=== PATIENT | female | born 1995 | race African-American/Black ===

== ENCOUNTER 2022-04-07 02:45 | Inpatient (IN) | payer OTHER ==
[2022-04-07] MEDS ORDERED: MORPHINE SULFATE 4 MG/ML SYRINGE IVP STA (03:07)
--- NOTE | 2022-04-07 03:07 | ED ---
Abdominal Pain HPI - General Source: patient Mode of arrival: ambulatory Limitations: no limitations <Valarie Rubin - Last Filed: 04/07/22 04:00> <Erick Frost - Last Filed: 04/07/22 04:51> - General Chief Complaint: Abdominal Pain Stated Complaint: ABD Pain Time Seen by Provider: 04/07/22 02:58 - History of Present Illness Initial Comments: Patient is a 26-year-old -German female presenting to the emergency room with complaints of upper abdominal pain ongoing for approximately 4 days with worsening intensity now causing her to wake out of the sleep. She is unable to identify any aggravating or alleviating factors. She reports upper abdominal pain radiating to the umbilical region increasing in intensity. She denies any other associated symptoms including any chest pain, shortness of breath, nausea, vomiting, diarrhea, dysuria, hematuria, concerns for STDs, concern for pregnanc y, abnormal vaginal discharge, fevers or chills. She denies any significant past medical history and does not take any medications on a regular basis. (Valarie Rubin) - Related Data Allergies Allergy/AdvReac Type Severity Reaction Status Date / Time No Known Allergies Allergy Verified 04/07/22 02:57 Review of Systems ROS Other: All systems not noted in ROS Statement are negative. <Valarie Rubin - Last Filed: 04/07/22 04:00> ROS Other: All systems not noted in ROS Statement are negative. <Erick Frost - Last Filed: 04/07/22 04:51> ROS Statement: Those systems with pertinent positive or pertinent negative responses have been documented in the HPI. Past Medical History Past Medical History: No Reported History History of Any Multi-Drug Resistant Organisms: None Reported Past Surgical History: Section Past Psychological History: No Psychological Hx Reported Smoking Status: Never smoker Past Alcohol Use History: Occasional Past Drug Use History: None Reported <Valarie Rubin - Last Filed: 04/07/22 04:00> General Exam Limitations: no limitations <Valarie Rubin - Last Filed: 04/07/22 04:00> - General Exam Comments Initial Comments: GENERAL: No acute distress, well developed, well nourished. Obese. HEENT: Normocephalic, atraumatic. Pupils equal, round, reactive to light. Moist mucous membranes. LUNGS: No respiratory distress. Clear to auscultation, no adventitious sounds, no use of accessory muscles. HEART: Regular rate and rhythm without murmur, rub, or gallop. ABDOMEN: Normal bowel sounds. Soft, non-distended. Right upper, left upper and umbilical tenderness. No lower abdominal tenderness. No rigidity or rebound tenderness BACK: Normal inspection. EXTREMITIES: No edema. No tenderness. Moves all extremities. NEUROLOGIC: Alert & oriented x 3. CN II-XII grossly intact. PSYCHIATRIC: Normal affect and behavior. DERMATOLOGIC: Skin intact, without rashes or lesions noted. (Valarie Rubin) Course <Erick Frost - Last Filed: 04/07/22 04:51> Vital Signs 04/07/22 04/07/22 02:53 03:40 Temperature 97.9 F Pulse Rate 96 91 Respiratory 19 18 Rate Blood Pressure 134/85 120/98 O2 Sat by Pulse 99 100 Oximetry - Reevaluation(s) Reevaluation #1: 04/07/22 04:51 Medical record is reviewed (Erick Frost) Reevaluation #2: 04/07/22 04:51 Patient's pain is controlled (Erick Frost) Reevaluation #3: 04/07/22 04:51 Patient informed results and questions have been answered (Erick Frost) - Consultations Consultation #1: Spoke with admitting physicians, DANISH, who agreed to admit this patient (Erick Jung) Medical Decision Making <Valarie Rubin - Last Filed: 04/07/22 04:00> - Lab Data Result diagrams: 04/07/22 03:12 04/07/22 03:12 - Radiology Data Radiology results: report reviewed (CT abdomen and pelvis is positive for pancreatitis), image reviewed <Erick Frost - Last Filed: 04/07/22 04:51> - Medical Decision Making Was pt. sent in by a medical professional or institution (, PA, [employer]CTURER, urgent care, hospital, or [facility]...) When possible be specific @ -No Did you speak to anyone other than the patient for history (EMS, parent, family, police, friend...)? What history was obtained from this source @ -No Did you review nursing and triage notes (agree or disagree)? Why? @ -I reviewed and agree with nursing and triage notes Were old charts reviewed (outside hosp., previous admission, EMS record, old EKG, old radiological studies, urgent care reports/EKG's, [facility] records)? Report findings @ -No old charts were reviewed Differential Diagnosis (chest pain, altered mental status, abdominal pain women, abdominal pain men, vaginal bleeding, weakness, fever, dyspnea, syncope, headache, dizziness, GI bleed, back pain, seizure, CVA, palpatations, mental health)? @ -Differential Abdominal Pain Women: Appendicitis, Cholecystitis, diverticulosis, ischemic bowel, pancreatitis, hepatitis, UTI, gastroenteritis, AAA, incarcerated hernia, bowel obstruction, constipation, inflammatory bowel, hepatitis, peptic ulcer disease, splenic infarction, perforated viscus, vulvitis, ovarian torsion, PID, kidney stone, placenta abruption, this is not meant to be an all-inclusive list EKG interpreted by me (3pts min.). @ -None done X-rays interpreted by me (1pt min.). @ -None done CT interpreted by me (1pt min.). @ -CT of the abdomen and pelvis without contrast and states inflammatory process around pancreas consistent with pancreatitis. No evidence of gallstones. No evidence of obstruction. U/S interpreted by me (1pt. min.). @ -None done What testing was considered but not performed or refused? (CT, X-rays, U/S, labs)? Why? @ -None What meds were considered but not given or refused? Why? @ -None Did you discuss the management of the patient with other professionals (professionals i.e. , PA, [employer]URER, lab, RT, psych nurse, social media sr strategy manager, log tumbler, teacher, payroll officer, child support case officer)? Give summary @ -No Was smoking cessation discussed for >3mins.? @ -No Was critical care preformed (if so, how long)? @ -No Were there social determinants of health that impacted care today? How? (Homelessness, low income, unemployed, alcoholism, drug addiction, transportation, low edu. Level, literacy, decrease access to med. care, retirement, r ehab)? @ -No Was there de-escalation of care discussed even if they declined (Discuss DNR or withdrawal of care, Hospice)? DNR status @ -No What co-morbidities impacted this encounter? (DM, HTN, Smoking, COPD, CAD, Cancer, CVA, ARF, Chemo, Hep., AIDS, mental health diagnosis, sleep apnea, morbid obesity)? @ -None Was patient admitted / discharged? Hospital course, mention meds given and route, prescriptions, significant lab abnormalities, going to OR and other pertinent info. @ -26-year-old -German female presenting to the emergency room with 4 days of upper abdominal pain radiating to the umbilical region increasing in intensity. No identifiable associated symptoms, aggravating or alleviating factors. Upper abdominal tenderness on exam noted. Will begin workup for abdominal pain in female patient with CBC, CMP, urinalysis, amylase, lipase, 4-plex to evaluate for Covid fluent RSV along with urine for . Will obtain CT of the abdomen and pelvis without contrast. Will give morphine for pain. No nausea or evidence of dehydration no need for IV fluids or antiemetics. CT of the abdomen and pelvis reveals pancreatitis. Labs pending. Will add A1c. Discussed recommendation of nothing by mouth status IV hydration and pain management for pancreatitis with patient pending further lab results. Case discussed with and transfer to Dr. Frost for further evaluation, treatment and disposition. Undiagnosed new problem with uncertain prognosis? @ -No Drug Therapy requiring intensive monitoring for toxicity (Heparin, Nitro, Insulin, Cardizem)? @ -No Were any procedures done? @ -No Diagnosis/symptom? @ -Pancreatitis Acute, or Chronic, or Acute on Chronic? @ -Acute Uncomplicated (without systemic symptoms) or Complicated (systemic symptoms)? @ -Uncomplicated Side effects of treatment? @ -No Exacerbation, Progression, or Severe Exacerbation? @ -No Poses a threat to life or bodily function? How? (Chest pain, [place], [place], pneumonia, PE, COPD, DKA, ARF, appy, cholecystitis, CVA, Diverticulitis, Homicidal, Suicidal, threat to staff... and all critical care pts) @ -No (Valarie Rubin) 26 female to the emergency department for evaluation. Patient will be admitted for acute new pancreatitis IV hydration and nothing by mouth status. (Erick Frost) - Lab Data Lab Results 04/07/22 04/07/22 04/07/22 Range/Units 03:07 03:12 03:12 WBC 5.5 (3.8-10.6) k/uL RBC 4.44 (3.80-5.40) m/uL Hgb 12.5 (11.4-16.0) gm/dL Hct 38.3 (34.0-46.0) % MCV 86.3 (80.0-100.0) fL MCH 28.2 (25.0-35.0) pg MCHC 32.7 (31.0-37.0) g/dL RDW 14.4 (11.5-15.5) % Plt Count 435 (150-450) k/uL MPV 8.3 Neutrophils % 48 % Lymphocytes % 42 % Monocytes % 5 % Eosinophils % 3 % Basophils % 1 % Neutrophils # 2.6 (1.3-7.7) k/uL Lymphocytes # 2.3 (1.0-4.8) k/uL Monocytes # 0.3 (0-1.0) k/uL Eosinophils # 0.2 (0-0.7) k/uL Basophils # 0.0 (0-0.2) k/uL Sodium (137-145) mmol/L Potassium (3.5-5.1) mmol/L Chloride (98-107) mmol/L Carbon Dioxide (22-30) mmol/L Anion Gap mmol/L BUN (7-17) mg/dL Creatinine (0.52-1.04) mg/dL Est GFR (CKD-EPI)AfAm (>60 ml/min/1.73 sqM) Est GFR (CKD-EPI)NonAf (>60 ml/min/1.73 sqM) Glucose (74-99) mg/dL Calcium (8.4-10.2) mg/dL Total Bilirubin (0.2-1.3) mg/dL AST (14-36) U/L ALT (4-34) U/L Alkaline Phosphatase (38-126) U/L Total Protein (6.3-8.2) g/dL Albumin (3.5-5.0) g/dL Amylase (30-110) U/L Lipase (23-300) U/L Urine Color Yellow Urine Appearance Cloudy H (Clear) Urine pH 6.5 (5.0-8.0) Ur Specific Todd 1.037 H (1.001-1.035) Urine Protein 1+ H (Negative) Urine Glucose (UA) Negative (Negative) Urine Ketones Negative (Negative) Urine Blood Moderate H (Negative) Urine Nitrite Negative (Negative) Urine Bilirubin Negative (Negative) Urine Urobilinogen 2.0 (<2.0) mg/dL Ur Leukocyte Esterase Negative (Negative) Urine RBC 2 (0-5) /hpf Urine WBC 2 (0-5) /hpf Ur Squamous Epith Cells 59 H (0-4) /hpf Urine Mucus Many H (None) /hpf Urine HCG, Qual (Not Detectd) Influenza Type A (PCR) Not Detected (Not Detectd) Influenza Type B (PCR) Not Detected (Not Detectd) RSV (PCR) Not Detected (Not Detectd) SARS-CoV-2 (PCR) Not Detected (Not Detectd) 04/07/22 04/07/22 Range/Units 03:12 03:12 WBC (3.8-10.6) k/uL RBC (3.80-5.40) m/uL Hgb (11.4-16.0) gm/dL Hct (34.0-46.0) % MCV (80.0-100.0) fL MCH (25.0-35.0) pg MCHC (31.0-37.0) g/dL RDW (11.5-15.5) % Plt Count (150-450) k/uL MPV Neutrophils % % Lymphocytes % % Monocytes % % Eosinophils % % Basophils % % Neutrophils # (1.3-7.7) k/uL Lymphocytes # (1.0-4.8) k/uL Monocytes # (0-1.0) k/uL Eosinophils # (0-0.7) k/uL Basophils # (0-0.2) k/uL Sodium 140 (137-145) mmol/L Potassium 3.9 (3.5-5.1) mmol/L Chloride 111 H (98-107) mmol/L Carbon Dioxide 20 L (22-30) mmol/L Anion Gap 9 mmol/L BUN 8 (7-17) mg/dL Creatinine 0.62 (0.52-1.04) mg/dL Est GFR (CKD-EPI)AfAm >90 (>60 ml/min/1.73 sqM) Est GFR (CKD-EPI)NonAf >90 (>60 ml/min/1.73 sqM) Glucose 108 H (74-99) mg/dL Calcium 8.8 (8.4-10.2) mg/dL Total Bilirubin 0.8 (0.2-1.3) mg/dL AST 46 H (14-36) U/L ALT 28 (4-34) U/L Alkaline Phosphatase 95 (38-126) U/L Total Protein 7.6 (6.3-8.2) g/dL Albumin 4.2 (3.5-5.0) g/dL Amylase 56 (30-110) U/L Lipase 407 H (23-300) U/L Urine Color Urine Appearance (Clear) Urine pH (5.0-8.0) Ur Specific Todd (1.001-1.035) Urine Protein (Negative) Urine Glucose (UA) (Negative) Urine Ketones (Negative) Urine Blood (Negative) Urine Nitrite (Negative) Urine Bilirubin (Negative) Urine Urobilinogen (<2.0) mg/dL Ur Leukocyte Esterase (Negative) Urine RBC (0-5) /hpf Urine WBC (0-5) /hpf Ur Squamous Epith Cells (0-4) /hpf Urine Mucus (None) /hpf Urine HCG, Qual Not Detected (Not Detectd) Influenza Type A (PCR) (Not Detectd) Influenza Type B (PCR) (Not Detectd) RSV (PCR) (Not Detectd) SARS-CoV-2 (PCR) (Not Detectd) Disposition <Valarie Rubin - Last Filed: 04/07/22 04:00> Time of Disposition: 04:50 <Erick Frost - Last Filed: 04/07/22 04:51> Clinical Impression: Abdominal pain, Pancreatitis Disposition: ADMITTED IP TO THIS [facility] Condition: Fair Referrals: None,Stated [Primary Care Provider] - 1-2 days
--- NOTE | 2022-04-07 03:53 | CT ---
EXAMINATION TYPE: CT abdomen pelvis wo con DATE OF EXAM: 04/07/2022 COMPARISON: Abdominal pain HISTORY: abd pain CT DLP: 700 mGycm Automated exposure control for dose reduction was used. Images obtained from the diaphragm to the floor the pelvis without contrast. The lung bases are clear. No pleural effusion. Heart size is normal. No pericardial effusion. Liver spleen and stomach pancreas gallbladder appear intact. The bile ducts are nondilated. There is minimal fat stranding around the pancreas. There is no adrenal mass. Kidneys have normal size and contour. No hydronephrosis. Ureters are not di lated. Appendix is medial and appears normal. No retroperitoneal adenopathy. The bladder distends smo othly. No hiatal hernia. Uterus is anteverted. No pelvic mass. No free fluid in the pelvis. There is no mesenteric edema. No ascites or free air. No sign of a bowel obstruction. The lumbar vertebra have normal alignment. Posterior element are intact. No compression fracture. The bony pelvis is intact. The hip joints are intact. Facet joints are intact. IMPRESSION: Mild fat stranding around the pancreas suggestive of acute pancreatitis. Normal appendix. Mild wall thickening seen in the proximal jejunum that could be some gastroenteritis .
[2022-04-07 03:59] LABS: Basophils % (A) 1 %; Eosinophils # (A) 0.2 k/uL (0-0.7); Eosinophils % (A) 3 %; HCT 38.3 % (34.0-46.0); HGB 12.5 gm/dL (11.4-16.0); Lymphocytes # (A) 2.3 k/uL (1.0-4.8); Lymphocytes % (A) 42 %; MCH 28.2 pg (25.0-35.0); MCHC 32.7 g/dL (31.0-37.0); MCV 86.3 fL (80.0-100.0); Mean Platelet Volume 8.3; Monocytes # (A) 0.3 k/uL (0-1.0); Monocytes % (A) 5 %; Neutrophils # (A) 2.6 k/uL (1.3-7.7); Neutrophils % (A) 48 %; Platelet Count 435 k/uL (150-450); RBC 4.44 m/uL (3.80-5.40); RDW 14.4 % (11.5-15.5); WBC 5.5 k/uL (3.8-10.6)
[2022-04-07 04:01] LABS: ALT 28 U/L (4-34); AST 46 U/L (14-36); African American GFR (CKD) >90 (>60 ml/min/1.73 sqM); Albumin 4.2 g/dL (3.5-5.0); Alkaline Phosphatase 95 U/L (38-126); Amylase 56 U/L (30-110); Anion Gap 9 mmol/L; Blood Urea Nitrogen 8 mg/dL (7-17); Calcium 8.8 mg/dL (8.4-10.2); Carbon Dioxide 20 mmol/L (22-30); Chloride 111 mmol/L (98-107); Glucose 108 mg/dL (74-99); Lipase 407 U/L (23-300); Non-African American GFR(CKD) >90 (>60 ml/min/1.73 sqM); Potassium 3.9 mmol/L (3.5-5.1); Sodium 140 mmol/L (137-145); Total Bilirubin 0.8 mg/dL (0.2-1.3); Total Protein 7.6 g/dL (6.3-8.2)
[2022-04-07] MEDS ORDERED: SODIUM CHLORIDE 0.9% 1,000 ML IV STA (04:03)
[2022-04-07 04:13] LABS: Appearance,Urine Cloudy (Clear); Bilirubin,Urine Negative (Negative); Blood,Urine Moderate (Negative); Color,Urine Yellow; Glucose,Urine (UA) Negative (Negative); Ketones,Urine Negative (Negative); Leukocyte Esterase,Urine Negative (Negative); Mucus,Urine Many /hpf; Nitrite,Urine Negative (Negative); PH, Urine 6.5 (5.0-8.0); Protein,Urine 1+ (Negative); RBC,Urine 2 /hpf (0-5); Specific Gravity,Urine 1.037 (1.001-1.035); Squamous Epithelial Cell,Urine 59 /hpf (0-4); WBC,Urine 2 /hpf (0-5)
[2022-04-07] MEDS ORDERED: NALOXONE 0.4 MG/ML 1 ML VIAL IV PRN (04:49)
[2022-04-07] MEDS ORDERED: ONDANSETRON 4 MG/2 ML VIAL IVP PRN (04:49)
[2022-04-07] MEDS ORDERED: SODIUM CHLORIDE 0.9% 500 ML 500 ML IV STA (04:50)
[2022-04-07] MEDS ORDERED: SODIUM CHLORIDE 0.9% 2,000 ML IV STA (04:50)
[2022-04-07] MEDS: PANTOPRAZOLE 40 MG/10 ML VIAL IV SCH (08:20)
[2022-04-07] MEDS: MORPHINE SULFATE 4 MG/ML SYRINGE IV PRN ×4 (08:45→22:48)
[2022-04-07] MEDS ORDERED: SODIUM CHLORIDE 0.9% 1,000 ML IV SCH (14:00)
--- NOTE | 2022-04-07 14:03 | P.HPIM ---
History of Present Illness [id number] female admitted for epigastric abdominal pain radiating to the back patient is found to have mildly elevated lipase of around [address] a [address] of the chest which showed gastroduodenitis and mild inflammation of the pancreas patient is hungry patient pain improved. Patient denied any alcohol abuse but does drink alcohol on weekends and patient's symptoms Started after green party, alcohol, after eating. Patient had a similar episode in the past which happened after Thanksgiving. Patient had severe pain which improved at this time. REVIEW OF SYSTEMS: CONSTITUTIONAL: No fever, no malaise, no fatigue. HEENT: No recent visual problems or hearing problems. Denied any sore throat. CARDIOVASCULAR: No chest pain, orthopnea, PND, no palpitations, no syncope. PULMONARY: No shortness of breath, no cough, no hemoptysis. GASTROINTESTINAL: As mentioned in HPI NEUROLOGICAL: No headaches, no weakness, no numbness. HEMATOLOGICAL: Denies any bleeding or petechiae. GENITOURINARY: Denies any burning micturition, frequency, or urgency. MUSCULOSKELETAL/RHEUMATOLOGICAL: Denies any joint pain, swelling, or any muscle pain. ENDOCRINE: Denies any polyuria or polydipsia. The rest of the 14-point review of systems is negative. PHYSICAL EXAMINATION: GENERAL: The patient is alert and oriented x3, not in any acute distress. Well developed, well nourished. HEENT: Pupils are round and equally reacting to light. EOMI. No scleral icterus. No conjunctival pallor. Normocephalic, atraumatic. No pharyngeal erythema. No thyromegaly. CARDIOVASCULAR: S1 and S2 present. No murmurs, rubs, or gallops. PULMONARY: Chest is clear to auscultation, no wheezing or crackles. ABDOMEN: Soft, nontender, nondistended, normoactive bowel sounds. No palpable organomegaly. MUSCULOSKELETAL: No joint swelling or deformity. EXTREMITIES: No cyanosis, clubbing, or pedal edema. NEUROLOGICAL: Gross neurological examination did not reveal any focal deficits. SKIN: No rashes. Assessment and plan -Possible gastritis, peptic ulcer disease, duodenitis, pancreatitis: Patient was nothing by mouth with improved symptoms patient will be stated started on clear liquid diet will advance to full liquid later today patient probably can be discharged tomorrow. We'll continue with IV fluids. Patient said gastritis/pancreatitis may be related to alcohol use. Obtain ultrasound of the abdomen to rule out any gallstones -Hyperchloremic metabolic acidosis, patient will be switched to lactated Ringer's DVT prophylaxis: Lovenox Past Medical History Past Medical History: No Reported History History of Any Multi-Drug Resistant Organisms: None Reported Past Surgical History: Section Past Psychological History: No Psychological Hx Reported Smoking Status: Never smoker Past Alcohol Use History: Occasional Past Drug Use History: None Reported Medications and Allergies Home Medications Medication Instructions Recorded Confirmed Type Medroxyprogesterone Acetate 150 mg IM Q84D 04/07/22 04/07/22 History [Depo-Provera] Allergies Allergy/AdvReac Type Severity Reaction Status Date / Time No Known Allergies Allergy Verified 04/07/22 02:57 Physical Exam Vitals: Vital Signs Temp Pulse Pulse Resp BP BP Pulse Ox 04/07/22 08:00 98.2 F 90 16 131/89 96 04/07/22 07:34 91 16 124/99 100 04/07/22 03:40 91 18 120/98 100 04/07/22 02:53 97.9 F 96 19 134/85 99 Intake and Output 04/06/22 04/07/22 04/07/22 22:59 06:59 14:59 Other: # Voids 1 Weight 96.162 kg 96.162 kg Results CBC & Chem 7: 04/07/22 03:12 04/07/22 03:12 Labs: Abnormal Lab Results - Last 24 Hours (Table) 04/07/22 04/07/22 Range/Units 03:12 03:12 Chloride 111 H (98-107) mmol/L Carbon Dioxide 20 L (22-30) mmol/L Glucose 108 H (74-99) mg/dL AST 46 H (14-36) U/L Lipase 407 H (23-300) U/L Urine Appearance Cloudy H (Clear) Ur Specific [place] 1.037 H (1.001-1.035) Urine Protein 1+ H (Negative) Urine Blood Moderate H (Negative) Ur Squamous Epith Cells 59 H (0-4) /hpf Urine Mucus Many H (None) /hpf Thrombosis Risk Factor Assmnt - Choose All That Apply Any of the Below Risk Factors Present?: Yes Each Factor Represents 1 point: Obesity (BMI >25) Other Risk Factors: No Other congenital or acquired thrombophilia - If yes, enter type in comment: No Thrombosis Risk Factor Assessment Total Risk Factor Score: 1 Thrombosis Risk Factor Assessment Level: Low Risk
[2022-04-07] MEDS: LACTATED RINGERS 1,000 ML IV SCH (17:04)
[2022-04-07] MEDS: ONDANSETRON 4 MG/2 ML VIAL IVP PRN (22:46)
[2022-04-08] MEDS: ONDANSETRON 4 MG/2 ML VIAL IVP PRN (05:50)
[2022-04-08] MEDS: PANTOPRAZOLE 40 MG/10 ML VIAL IV SCH (08:07)
[2022-04-08] MEDS: MORPHINE SULFATE 4 MG/ML SYRINGE IV PRN ×4 (08:07→23:05)
--- NOTE | 2022-04-08 08:09 | US ---
EXAMINATION TYPE: US gallbladder DATE OF EXAM: 04/08/2022 COMPARISON: CT 04/07/2022 CLINICAL HISTORY: elevated liver enzymes. Elevated LFT's, pt states ABD pain post prandial TECHNIQUE: Multiple sonographic images of the right upper quadrant are obtained. FINDINGS: EXAM MEASUREMENTS: Liver Length: 17.2 cm Gallbladder Wall: 0.2 cm CBD: 0.2 cm Right Kidney: 9.8 x 4.0 x 5.0 cm TRUCK CHAUFFEUR NOTES: Pancreas: wnl, tail obscured by overlying bowel gas Liver: Heterogeneous, otherwise appeared wnl Gallbladder: wnl Evidence for sonographic Rojas's sign: No CBD: wnl Right Kidney: wnl, lower pole gassed out The visualized portions of the pancreas are unremarkable. The tail is obscured by overlying bowel gas . Liver is somewhat heterogenous in echotexture without evidence of nodularity or focal lesion. Gallb ladder is mildly distended without evidence of wall thickening, shadowing gallstones, or pericolic fl uid. Per maternal child nurse, negative sonographic Rojas sign. The common bile duct within normal limits. Th e visualized portion of the right kidney is within normal limits. The lower pole is obscured by overl earl bowel gas. No gross evidence of hydronephrosis, shadowing calculi, or contour deforming solid ma ss. IMPRESSION: 1. No acute process. 2. Nonspecific heterogenous appearance of the liver without focal lesion or nodularity. Findings sugg ests nonspecific hepatocellular disease.
[2022-04-08] MEDS: LACTATED RINGERS 1,000 ML IV SCH (08:13)
[2022-04-08 09:00] LABS: Basophils # (A) 0.01 X 10*3/uL (0.00-0.10); Basophils % (A) 0.1 %; Eosinophils # (A) 0.15 X 10*3/uL (0.04-0.35); Eosinophils % (A) 2.2 %; HCT 33.5 % (37.2-46.3); HGB 10.8 g/dL (12.0-15.0); Immature Grans, Automated 0.3 %; Lymphocytes # (A) 2.07 X 10*3/uL (0.90-5.00); Lymphocytes % (A) 29.9 %; MCH 28.8 pg (27.0-32.0); MCHC 32.2 g/dL (32.0-37.0); MCV 89.3 fL (80.0-97.0); Mean Platelet Volume 10.5 fL (9.5-12.2); Monocytes # (A) 0.58 X 10*3/uL (0.20-1.00); Monocytes % (A) 8.4 %; NRBC Per 100 WBC 0 /100 WBCS (0.0-0.0); Neutrophils # (A) 4.09 X 10*3/uL (1.80-7.70); Neutrophils % (A) 59.1 %; Platelet Count 369 X 10*3/uL (140-440); RBC 3.75 X 10*6/uL (4.10-5.20); RDW 14.6 % (11.5-14.5); WBC 6.92 X 10*3/uL (4.50-10.00)
[2022-04-08 09:08] LABS: African American GFR (CKD) 136.7 (60.0-200.0); Albumin 3.6 g/dL (3.8-4.9); Albumin/Globulin Ratio 1.5 (1.60-3.17); Anion Gap 7.2 mmol/L (10.00-18.00); Blood Urea Nitrogen 4.2 mg/dL (9.0-27.0); Calcium 8.8 mg/dL (8.7-10.3); Carbon Dioxide 22.8 mmol/L (20.0-27.5); Globulin 2.4 g/dL (1.6-3.3); Non-African American GFR(CKD) 117.9 (60.0-200.0); Potassium 3.9 mmol/L (3.5-5.5); Total Bilirubin 0.8 mg/dL (0.30-1.20)
--- NOTE | 2022-04-08 17:26 | P.PN ---
Subjective Progress Note Date: 04/08/[id number] female admitted for epigastric abdominal pain radiating to the back patient is found to have mildly elevated lipase of around [address] also [address] a [address] of the chest which showed gastroduodenitis and mild inflammation of the pancreas patient is hungry patient pain improved. Patient denied any alcohol abuse but does drink alcohol on weekends and patient's symptoms Started after democrat, alcohol, after eating. Patient had a similar episode in the past which happened after Thanksgiving. Patient had severe pain which improved at this time. 04/08/2022 Patient is evaluated today on medical floor. She continues to report 8/10 epigastric and LUQ abdominal pain reported as crampy. She has tolerated diet but states pain dose seem worse after eating. This is likely gastritis. Gallbladder ultrasound showing no acute process, nonspecific heterogenous appearance of the liver without focal lesion or nodularity. Findings suggest nonspecific hepatocellular disease. Liver enzymes remain stable. Lipase improved to 172. Review of Systems Constitutional: Denied any fatigue denied any fever. Cardio vascular: denied any chest pain, palpitations Gastrointestinal: denied any nausea, vomiting, diarrhea. Reports epigastric/LUQ abdominal pain. Pulmonary: Denied any shortness of breath cough Neurologic denied any new focal deficits All inpatient medications were reviewed and appropriate changes in these medications as dictated in the interval history and assessment and plan. PHYSICAL EXAMINATION: GENERAL: The patient is alert and oriented x3, not in any acute distress. Well developed, well nourished. HEENT: Pupils are round and equally reacting to light. EOMI. No scleral icterus. No conjunctival pallor. Normocephalic, atraumatic. No pharyngeal erythema. No thyromegaly. CARDIOVASCULAR: S1 and S2 present. No murmurs, rubs, or gallops. PULMONARY: Chest is clear to auscultation, no wheezing or crackles. ABDOMEN: Soft, epigastric tenderness, nondistended, normoactive bowel sounds. No palpable organomegaly. MUSCULOSKELETAL: No joint swelling or deformity. EXTREMITIES: No cyanosis, clubbing, or pedal edema. NEUROLOGICAL: Gross neurological examination did not reveal any focal deficits. SKIN: No rashes. Assessment and plan -Possible gastritis, peptic ulcer disease, duodenitis, pancreatitis: Patient has had diet advanced with worsening abdominal pain after eating. Continues on IV protonix and pain management. Lipase improving but still mildly elevated. Patient said gastritis/pancreatitis may be related to alcohol use. Ultrasound with no evidence for gallstones or acute mykel. Will continue to monitor overnight and continue IV fluids. -Hyperchloremic metabolic acidosis, improved and continue on LR. -Continue antiemetics and all other supportive care. DVT prophylaxis: Lovenox Full Code The impression and plan of care has been dictated by Danna Beltrán, Nurse Practitioner as directed. Dr. Jessica MD I have performed a history and physical examination and medical decision making of this patient, discussed the same with the dictator, and agree with the dictators assessment and plan as written, documented as a scribe. Based on total visit time, I have performed more than 50% of this visit. Objective - Vital Signs Vital signs: Vital Signs Temp 98.5 F 04/08/22 08:00 Pulse 80 04/08/22 08:05 Resp 16 04/08/22 08:05 BP 127/82 04/08/22 08:00 Pulse Ox 97 04/08/22 08:00 FiO2 Intake & Output 04/07/22 04/08/22 04/08/22 18:59 06:59 18:59 Weight 96.162 kg Other: Voiding Method Toilet # Voids 2 5 - Labs CBC & Chem 7: 04/08/22 05:00 04/08/22 05:00 Labs: Abnormal Lab Results - Last 24 Hours (Table) 04/08/22 04/08/22 Range/Units 05:00 05:00 RBC 3.75 L (4.10-5.20) X 10*6/uL Hgb 10.8 L (12.0-15.0) g/dL Hct 33.5 L (37.2-46.3) % RDW 14.6 H (11.5-14.5) % Anion Gap 7.20 L (10.00-18.00) mmol/L BUN 4.2 L (9.0-27.0) mg/dL BUN/Creatinine Ratio 6.00 L (12.00-20.00) Ratio Total Protein 6.0 L (6.2-8.2) g/dL Albumin 3.6 L (3.8-4.9) g/dL Albumin/Globulin Ratio 1.50 L (1.60-3.17) g/dL Lipase 172 H (14-63) U/L Assessment and Plan Time with Patient: Less than 30
[2022-04-08] MEDS: PANTOPRAZOLE 40 MG/10 ML VIAL IVP SCH (20:50)
[2022-04-08] MEDS: diphenhydrAMINE 25 MG CAP PO PRN (23:05)
[2022-04-09 08:47] VITALS: BP 138/90; PULSE 63; RESP 17; TEMP 99.2
[2022-04-09] MEDS: PANTOPRAZOLE 40 MG/10 ML VIAL IVP SCH (09:57)
[2022-04-09] MEDS: MORPHINE SULFATE 4 MG/ML SYRINGE IV PRN (09:58)
[2022-04-09 10:27] LABS: Basophils % (A) 0 %; Eosinophils # (A) 0.2 k/uL (0-0.7); Eosinophils % (A) 3 %; HCT 35.3 % (34.0-46.0); HGB 11.4 gm/dL (11.4-16.0); Lymphocytes # (A) 1.6 k/uL (1.0-4.8); Lymphocytes % (A) 30 %; MCH 29.3 pg (25.0-35.0); MCHC 32.2 g/dL (31.0-37.0); MCV 90.8 fL (80.0-100.0); Mean Platelet Volume 7.6; Monocytes # (A) 0.3 k/uL (0-1.0); Monocytes % (A) 5 %; Neutrophils # (A) 3.2 k/uL (1.3-7.7); Neutrophils % (A) 59 %; Platelet Count 353 k/uL (150-450); RBC 3.89 m/uL (3.80-5.40); RDW 14.7 % (11.5-15.5); WBC 5.5 k/uL (3.8-10.6)
[2022-04-09 10:40] LABS: ALT 18 U/L (4-34); AST 28 U/L (14-36); African American GFR (CKD) >90 (>60 ml/min/1.73 sqM); Albumin 3.5 g/dL (3.5-5.0); Albumin/Globulin Ratio 1.1; Alkaline Phosphatase 67 U/L (38-126); Anion Gap 6 mmol/L; Blood Urea Nitrogen 2 mg/dL (7-17); Calcium 8.9 mg/dL (8.4-10.2); Carbon Dioxide 25 mmol/L (22-30); Chloride 107 mmol/L (98-107); Globulin 3.1 g/dL; Glucose 99 mg/dL (74-99); Non-African American GFR(CKD) >90 (>60 ml/min/1.73 sqM); Potassium 3.9 mmol/L (3.5-5.1); Sodium 138 mmol/L (137-145); Total Bilirubin 0.8 mg/dL (0.2-1.3); Total Protein 6.6 g/dL (6.3-8.2)
[2022-04-09] MEDS: diphenhydrAMINE 25 MG CAP PO PRN (11:12)
[2022-04-09] MEDS: LACTATED RINGERS 1,000 ML IV SCH (11:13)
--- NOTE | 2022-04-11 08:48 | P.DS ---
Providers Date of admission: 04/07/22 04:50 Attending physician: Sapna Preston Primary care physician: Stated None Hospital Course: Final Diagnosis -Possible gastritis, peptic ulcer disease, duodenitis, pancreatitis: likely related to diet and alcohol use no evidence of gallstones or acute cholecystitis -Hyperchloremic metabolic acidosis, improved and continue on LR. -Continue antiemetics and all other supportive care. Discharge Disposition Patient is stable for discharge home. She will continue on oral protonix 40 mg twice a day for 2 weeks than transition to oral lasix daily. She will be given a short course of tramadol for pain management. Recommending to avoid acidic foods, spicy foods. Follow up labs in 1 to 2 days. [place] She is given information to follow up with Dr. Martha Dawn. Recommended to return to if symptoms do not improve or worsen. Hospital Course This is a 26 -year-old female admitted for epigastric abdominal pain radiating to the back patient is found to have mildly elevated lipase of around [address] patient also had a [address] of the chest which showed gastroduodenitis and mild inflammation of the pancreas patient is hungry, and has tolerated some diet and pain is improving. Patient denied any alcohol abuse but does drink alcohol on weekends and patient's symptoms Started after democrat, alcohol, after eating. Patient had a similar episode in the past which happened after Thanksgiving. Patient had severe pain which improved at this time. Urinalysis is negative for infection, RSV, Covid, Influenza A/B is negative. Denies fever/chills. No chest pain or shortness of breath. She had follow up labs showing improving lipase and abdominal ultrasound was done showing no acute process, nonspecific heterogenous appearance of the liver without focal lesion or nodularity. Findings suggest nonspecific hepatocellular disease. [place] will be in this area for the next 4 months. She has been started on oral protonix and pain management and symptoms are improving. Continues with some mild epigastric tenderness. She has tolerated regular diet and will be discharge homed. Follow up with GI services recommended. 04/09/2022 Patient is evaluated today resting in bed. No acute events overnight. Denies chest pain, denies shortness of breath. Denies vomiting or diarrhea. Has some mild epigastric tenderness and nausea. She is tolerating solid foods. Lungs are clear, S1 S2 auscultated, alert x 3 focal neurological exam is negative. Overall pain has improved. Lipase has improved to 172. Most recent labs showing white count of 5.5 which has remained negative, hemoglobin 11.4 stable, sodium 138, potassium 3.9, BUN 2, creatinine 0.62, AST 28, ALT 18, alk phos 67. Afebrile, heart rate 63, blood pressure 138/90, 97% on room air. Cleared for discharge with above mentioned recommendations. Please see medication reconciliation for a list of current medication. Thank you for allowing us to participate in the care of this patient. The impression and plan of care has been dictated by Danna Beltrán, Nurse Practitioner as directed. Dr. Jessica MD I have performed a history and physical examination and medical decision making of this patient, discussed the same with the dictator, and agree with the dictators assessment and plan as written, documented as a scribe. Based on total visit time, I have performed more than 50% of this visit. Patient Condition at Discharge: Stable Plan - Discharge Summary Discharge Rx Participant: No New Discharge Prescriptions: New Pantoprazole Sodium [Protonix] 40 mg PO DIRECTED 30 Days #42 tab traMADol HCl [Ultram] 50 mg PO Q6HR PRN 3 Days #12 tab PRN Reason: Pain Continue Medroxyprogesterone Acetate [Depo-Provera] 150 mg IM Q84D Discharge Medication List Medroxyprogesterone Acetate [Depo-Provera] 150 mg IM Q84D 04/07/22 [History] Pantoprazole Sodium [Protonix] 40 mg PO DIRECTED 30 Days #42 tab 04/09/22 [Rx] traMADol HCl [Ultram] 50 mg PO Q6HR PRN 3 Days #12 tab 04/09/22 [Rx] Follow up Appointment(s)/Referral(s): Trini Dawn MD [STAFF PHYSICIAN] - 1 Week (office busy at time of discharge. Please call to schedule appointment ) None,Stated [Primary Care Provider] - 1-2 days Ambulatory/Diagnostic Orders: Comprehensive Metabolic Panel [LAB.AMB] Time Frame: 3 Days, Location: None Selected Patient Instructions/Handouts: Pancreatitis (DC), Diet for Stomach Ulcers and Gastritis (ED) Activity/Diet/Wound Care/Special Instructions: Recommend to advance diet as tolerated Avoid coffee, acidic foods, and start with a bland diet. Continue protonix twice a day for 2 weeks than change to daily Follow up with Dr Dawn with GI services for continued abdominal pain or return to the [facility] Discharge Disposition: HOME SELF-CARE
== END 2022-04-09 14:25 | disposition home or self-care (01) | DRG 439 ==
LOC: EC 02:45 → 5NMEDONC 04:49 → INTOOBSV 04:49 → OBSVTOIN 04:50 → 4SSUR 05:59
PROVIDERS: ADMIT Hospitalist; ATTEND Hospitalist
DX: K85.20 Alcohol induced acute pancreatitis without necrosis or infection (principal); E87.20 Acidosis, unspecified; K29.70 Gastritis, unspecified, without bleeding; K29.90 Gastroduodenitis, unspecified, without bleeding; Z20.822 Contact with and (suspected) exposure to COVID-19; E87.8 Other disorders of electrolyte and fluid balance, not elsewhere classified; I10 Essential (primary) hypertension; E78.00 Pure hypercholesterolemia, unspecified; F10.90 Alcohol use, unspecified, uncomplicated
CPT/HCPCS: 36415; 74176; 76705; 80053; 81001; 81025; 82150; 83036; 83690; 85025; 87636; 96361; 96374; 99285